=== PATIENT | male | born 1995 | race Caucasian/White ===

== ENCOUNTER 2016-08-30 20:04 | Emergency (ER) | payer SELFPAY ==
[~2016-08-30 20:04] MED LIST: Cephalexin 500 MG Cap ONE
[2016-08-30 20:14] VITALS: BP 137/80
--- NOTE | 2016-08-30 20:48 | EDM.PDOC ---
ED HPI GENERAL MEDICAL PROBLEM - General Chief Complaint: General Stated Complaint: RASH Time Seen by Provider: 08/30/16 20:10 Source of Information: Reports: Patient History Limitations: Reports: No Limitations - History of Present Illness Duration: Day(s): (3) Location: Reports: Lower Extremity, Left Quality: Reports: Ache Severity: Mild Improves with: Reports: None Worsens with: Reports: None Associated Symptoms: Reports: Fever/Chills, Rash. 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 Denies: Chills, Fatigue, Night Sweats HEENT: Denies: Sinus Problem, Throat Pain, Throat Swelling Respiratory: Denies: Cough, Sputum Cardiovascular: Denies: Chest Pain, Lightheadedness Endocrine: Denies: Fatigue GI/Abdominal: Denies: Abdominal Pain, Nausea, Vomiting Skin: Reports: Rash. Denies: Jaundice, Mottled, Bruising, Pruritis ED EXAM, GENERAL - Physical Exam Exam: See Below Exam Limited By: No Limitations General Appearance: Alert, WD/WN, No Apparent Distress Eye Exam: Bilateral Eye: EOMI Ears: Normal External Exam, Normal Canal, Hearing Grossly Normal, Normal TMs Ear Exam: Bilateral Ear: Auricle Normal, Canal Normal, TM normal Nose: Normal Inspection, Normal Mucosa, No Blood Throat/Mouth: Normal Inspection, Normal Lips, Normal Teeth, Normal Gums, Normal Oropharynx, Normal Voice, No Airway Compromise Head: Atraumatic, Normocephalic Neck: Normal Inspection, Supple, Non-Tender, Full Range of Motion Respiratory/Chest: No Respiratory Distress, Lungs Clear, Normal Breath Sounds, No Accessory Muscle Use, Chest Non-Tender Cardiovascular: Normal Peripheral Pulses, Regular Rate, Rhythm, No Edema, No Gallop, No JVD, No Murmur, No Rub Extremities: Normal Inspection, Normal Range of Motion, Non-Tender, Normal Capillary Refill, No Pedal Edema Skin Exam: Warm, Intact, Other (Left leg: ther is erythema over the anterio aspect of the upper leg just distal to the knee joint. Approximately 8cm by 10 cm. there ia asmall insect bite asim within the swelling. The swelling is warm and tender to touch. there is a small are le linden 2 cm over the medail aspect of thelwoer thigh with similar lesion.) Course - Vital Signs Text/Narrative:: Pt has superficial cellulitis of the left upper leg. His white count is normal. Started him on keflex 500mg 2 times daily. rest and hydration. motrin 600mg 3 times daily s need for pain. the redness over the right leg should gradually improve and resovle. If not better in 3-4 days followup in clinic. Last Recorded V/S: Last Vital Signs Temp 99.3 F 08/30/16 20:11 Pulse 62 08/30/16 20:11 Resp 18 08/30/16 20:11 BP 137/80 08/30/16 20:11 Pulse Ox 99 08/30/16 20:11 - Orders/Labs/Meds Labs: Laboratory Tests 08/30/16 Range/Units 20:25 WBC 9.0 (4.0-11.0) K/uL RBC 4.67 (4.50-6.50) M/uL Hgb 14.3 (13.0-18.0) g/dL Hct 39.6 L (40.0-54.0) % MCV 85 (76-96) fL MCH 30.6 (27.0-32.0) pg MCHC 36.1 H (31.0-35.0) g/dL RDW 11.9 (11.0-16.0) % Plt Count 206 (150-400) K/uL MPV 8.5 (6.0-10.0) fL Neut % (Auto) 61.8 (45.0-70.0) % Lymph % (Auto) 22.4 (20.0-40.0) % Foster % (Auto) 12.7 H (3.0-10.0) % Eos % (Auto) 2.9 (1.0-5.0) % Baso % (Auto) 0.2 (0.0-0.5) % Neut # (Auto) 5.57 (2.00-7.50) K/uL Lymph # (Auto) 2.02 (1.50-4.00) K/uL Foster # (Auto) 1.15 H (0.20-0.80) K/uL Eos # (Auto) 0.26 (0.04-0.40) K/uL Baso # (Auto) 0.02 (0.02-0.10) K/uL Departure - Departure Time of Disposition: 21:00 Disposition: Home, Self-Care 01 Condition: Good Clinical Impression: Cellulitis of left leg - Discharge Information Instructions: Cellulitis, Adult Forms: ED Department Discharge Additional Instructions: Pt has superficial cellulitis of the left upper leg. His white count is normal. Started him on keflex 500mg 2 times daily. rest and hydration. motrin 600mg 3 times daily s need for pain. the redness over the right leg should gradually improve and resolve. If not better in 3-4 days followup in clinic. - Problem List & Annotations (1) Cellulitis of right leg SNOMED Code(s): 796409829 Code(s): L03.115 - CELLULITIS OF RIGHT LOWER LIMB Status: Acute (2) Cellulitis of left leg SNOMED Code(s): 623576585 Code(s): L03.116 - CELLULITIS OF LEFT LOWER LIMB Status: Acute - Problem List Review Problem List Initiated/Reviewed/Updated: Yes - Assessment/Plan Assessment:: Left leg cellulitis Plan: Pt has superficial cellulitis of the left upper leg. His white count is normal. Started him on keflex 500mg 2 times daily. rest and hydration. motrin 600mg 3 times daily s need for pain. the redness over the right leg should gradually improve and resovle. If not better in 3-4 days followup in clinic.
== END 2016-08-30 20:53 | disposition home or self-care (01) ==
LOC: LB.ED 20:04
DX: L03.116 Cellulitis of left lower limb (principal)
CPT/HCPCS: 36415; 85025; 99282; 99284; A9270